=== PATIENT | male | born 1965 | race Caucasian/White ===

== ENCOUNTER 2022-10-19 14:02 | Outpatient (CLI) | payer BC, SELFPAY ==
--- NOTE | ~2022-10-19 | MR_ITS ---
EXAMINATION: MR knee RT wo con DATE: 10/19/2022 14:40 INDICATION: Right knee pain TECHNIQUE: Magnetic resonance imaging (MRI) of the right knee was performed without intravenous contr ast. Sequences included coronal PD-weighted FSE, coronal PD-weighted FS FSE, sagittal T2-weighted FS E, sagittal PD-weighted FS FSE and axial PD weighted fat saturated FSE. COMPARISON: None. FINDINGS: Medial compartment: Complex tear of the body and posterior horn of the medial meniscus. Which includes a longitudinal hor izontal tear plane extending to the periphery of the meniscus. Small region of partial-thickness christine dral ulceration and fissuring involving at least 50% the cartilage thickness but without underlying d egenerative subchondral changes which extends along the lateral side of the anterior to central weigh tbearing medial femoral condyle. Mild peripheral predominant partial-thickness cartilage loss with sm ooth chondral surface at the medial tibial plateau. Lateral compartment: Lateral meniscus is normal. Articular cartilage is normal. Patellofemoral compartment: Partial-thickness chondral fissuring involving up to 50% the cartilage thickness at the medial side o f the lateral patellar facet and central apical ridge. Additional deep chondral ulceration involving greater than 50% the cartilage thickness at the lateral trochlea. Less severe partial thickness chond ral ulceration with deep fissuring at the trochlear groove and cephalad aspect of the medial trochlea . There is a small shallow depression to the articular cortex at the cephalad aspect of the medial tr ochlea with underlying curvilinear low signal but without surrounding edema suspicious for an old hea led impaction fracture. Ligaments and tendons: Anterior and posterior cruciate ligaments are normal. Mild thickening of the proximal medial collater al ligament without increased signal which could represent mild scarring related to a chronic sprain. The fibular collateral ligament complex is normal. Mild distal quadriceps tendinopathy/enthesopathy without tear. Small enthesophyte at its patellar insertion. The patellar tendon is normal. The visual ized medial and lateral hamstring tendons as well as the iliotibial band are normal. Fluid: Small right knee joint effusion. No loose osteochondral bodies identified. Osseous/other: Normal marrow signal throughout. No recent fracture or pathologic marrow replacing process. IMPRESSION: 1. Complex medial meniscal tear. 2. 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 3. Shallow concavity to the articular cortex at the superior aspect of the medial trochlea which sugg ests possibility of an old healed impaction fracture. 4. Mild tendinopathy/enthesopathy at the distal quadriceps tendon. 4. Suggestion of mild scarring related to chronic sprain of the proximal medial collateral ligament. Reviewed, dictated and finalized at location B. IMPRESSION: 1. Complex medial meniscal tear. 2. Mild osteoarthritis with regions of moderate grade chondral malacia the medi al and patellofemoral compartments. 3. Shallow concavity to the articular cortex at the superior aspect of the medi al trochlea which suggests possibility of an old healed impaction fracture. 4. Mild tendinopathy/enthesopathy at the distal quadriceps tendon. 4. Suggestion of mild scarring related to chronic sprain of the proximal medial collateral ligament.
== END 2022-10-19 14:03 ==
PROVIDERS: PCP Internal Medicine; Visit Provider Orthopaedic Surgery
DX: S83.231A Complex tear of medial meniscus, current injury, right knee, initial encounter (principal); X58.XXXA Exposure to other specified factors, initial encounter; M17.11 Unilateral primary osteoarthritis, right knee
CPT/HCPCS: 73721